=== PATIENT | female | born 1940 | race Caucasian/White ===

== ENCOUNTER 2016-08-04 14:33 | Emergency (ER) | payer SELFPAY ==
[2016-08-04 15:22] LABS: BASOPHILS 0.4 % (0.0-2.0); EOSINOPHILS 4.2 % (0-7); HEMATOCRIT 28.9 % (36.0-48.0); HEMOGLOBIN 8.9 g/dL (12-16); IMMATURE GRANULOCYTES 0.6 % (0-5); LYMPHOCYTES 20.4 % (15-50); MCH 30.4 pg (26.0-34.0); MCHC 30.8 g/dL (31.0-37.0); MCV 98.6 fL (80.0-100.0); MEAN PLATELET VOLUME 9.8 fL (7.4-10.4); MONOCYTES 11.5 % (2-11); NEUTROPHILS 62.9 % (40-80); PLATELET COUNT 215 10x3/uL (130-400); RBC 2.93 10x6/uL (4.00-5.40); RDW 13.7 % (11.5-14.5); WBC 5.2 10x3/uL (4.8-10.8)
[2016-08-04 15:35] LABS: ANION GAP 11.2 mmol/L (8-16); BILIRUBIN - TOTAL 1.09 mg/dL (0.2-1.3); CALCIUM 8.6 mg/dL (8.5-10.1); CARBON DIOXIDE 28.2 mmol/L (21.0-32.0); CREATININE - SERUM 1.2 mg/dL (0.6-1.3); POTASSIUM - SERUM 4.4 mmol/L (3.5-5.1); PROTEIN - SERUM 5.9 g/dL (6.4-8.2)
[2016-08-04 16:39] LABS: APPEARANCE HAZY (CLEAR); BILIRUBIN 1+ (NEGATIVE); COLOR DK YELLOW (YELLOW); GLUCOSE NEGATIVE (NEGATIVE); KETONE NEGATIVE (NEGATIVE); LEUKOCYTE ESTERASE 1+ (NEGATIVE); NITRITE NEGATIVE (NEGATIVE); PROTEIN NEGATIVE (NEGATIVE); SPECIFIC GRAVITY 1.015 (1.005-1.020)
[2016-08-04 16:44] LABS: BACTERIA MANY /hpf (NONE SEEN); EPITHELIAL CELLS 0-5 /hpf (0-5); RED CELLS - URINE 0-5 /hpf (0-5); WHITE CELLS - URINE >50 /hpf (0-5)
== END 2016-08-04 18:15 | disposition home or self-care (01) ==
LOC: D.ER 14:33
PROVIDERS: Emergency Medicine
DX: R19.7 Diarrhea, unspecified (principal); N39.0 Urinary tract infection, site not specified; I10 Essential (primary) hypertension; D64.9 Anemia, unspecified

== ENCOUNTER 2016-08-16 12:25 | Inpatient (IN) | payer MEDICARE ==
[~2016-08-16] VITALS: Ht 167.6 cm; Wt 54.9 kg
[2016-08-16] MEDS ORDERED: NORVASC5 MG PO (12:48)
[2016-08-16] MEDS ORDERED: LOVASTATIN20 MG PO (12:48)
[2016-08-16] MEDS ORDERED: OXYBUTYNIN CHLOR5 MG PO (12:49)
[2016-08-16] MEDS ORDERED: VOLTAREN100 MG PO (12:50)
[2016-08-16] MEDS ORDERED: CELEXA20 MG PO (12:50)
[2016-08-16] MEDS ORDERED: ULTRAM50 MG PO (12:51)
[2016-08-16] MEDS ORDERED: VENTOLIN HFA18 GM INH (12:52)
[2016-08-16] MEDS ORDERED: COMBIGAN OPHT DR5 ML EACH EYE (12:52)
[2016-08-16] MEDS ORDERED: LITE COAT ASPI325 MG PO (12:53)
[2016-08-16 12:58] VITALS: BP 137/66
[2016-08-16 13:26] VITALS: BMI 19.5
[2016-08-16 14:28] LABS: BASOPHILS 0.2 % (0.0-2.0); EOSINOPHILS 0.9 % (0-7); HEMATOCRIT 28.8 % (36.0-48.0); HEMOGLOBIN 8.9 g/dL (12-16); IMMATURE GRANULOCYTES 0.3 % (0-5); LYMPHOCYTES 13.9 % (15-50); MCH 30.5 pg (26.0-34.0); MCHC 30.9 g/dL (31.0-37.0); MCV 98.6 fL (80.0-100.0); MEAN PLATELET VOLUME 9.1 fL (7.4-10.4); MONOCYTES 5.8 % (2-11); NEUTROPHILS 78.9 % (40-80); PLATELET COUNT 192 10x3/uL (130-400); RBC 2.92 10x6/uL (4.00-5.40); RDW 13.1 % (11.5-14.5); WBC 5.9 10x3/uL (4.8-10.8)
[2016-08-16 14:47] LABS: ALBUMIN 3.1 g/dL (3.4-5.0); ANION GAP 13.5 mmol/L (8-16); BILIRUBIN - DIRECT 0.18 mg/dL (0.00-0.30); BILIRUBIN - INDIRECT 0.37 mg/dL (0.00-1.00); BILIRUBIN - TOTAL 0.55 mg/dL (0.2-1.3); CALCIUM 8.5 mg/dL (8.5-10.1); CREATININE - SERUM 0.8 mg/dL (0.6-1.3); POTASSIUM - SERUM 4.5 mmol/L (3.5-5.1); PRE-ALBUMIN 15.5 mg/dL (18.0-35.7); PROTEIN - SERUM 6.3 g/dL (6.4-8.2)
[2016-08-16 16:21] VITALS: BP 133/53
--- NOTE | 2016-08-16 19:00 | NUR ---
PATIENT IN BED WATCHING TV. HOB 40 DEGREES. AAOX4. RR EVEN AND UNLABORED. 0 S/S OF DISTRESS. DENIES PAIN BUT C/O NAUSEA. IV TO RIGHT FA PATENT WITH NO REDNESS OR SWELLING. SCD'S OFF. SRX2. BED LOW. CALL LIGHT WITHIN REACH.
[2016-08-16 20:01] VITALS: BP 141/61
--- NOTE | 2016-08-16 22:30 | NUR ---
ASSESSMENT COMPLETE. NIGHTTIME MED GIVEN. ENCOURAGING PATIENT TO DRINK GOLYTELY, BUT SHE STATED IT IS MAKING HER MORE NAUSEATED. ZOFRAN GIVEN. WILL REASSESS.
--- NOTE | 2016-08-16 23:30 | NUR ---
PATIENT HAVING BM'S FINALLY FROM [employer]. STOOL SAMPLE COLLECTED. ACCORDING TO ORDERS 24 HR URINE WAS SUPPOSED TO BE STARTED DURING DAY SHIFT BUT WAS NOT. NOW UNABLE TO KEEP URINE SEPARATE FROM STOOL. WILL PASS ON IN REPORT.
[2016-08-17] VITALS: BP 133/59
[2016-08-17 04:00] VITALS: BP 142/72
--- NOTE | 2016-08-17 04:30 | NUR ---
PATIENT RESTING WITH EYES CLOSED AND NO DISTRESS NOTED.
[2016-08-17 06:16] LABS: BASOPHILS 0.6 % (0.0-2.0); EOSINOPHILS 3.1 % (0-7); HEMATOCRIT 28.3 % (36.0-48.0); HEMOGLOBIN 8.9 g/dL (12-16); IMMATURE GRANULOCYTES 0.3 % (0-5); LYMPHOCYTES 27.1 % (15-50); MCH 30.6 pg (26.0-34.0); MCHC 31.4 g/dL (31.0-37.0); MCV 97.3 fL (80.0-100.0); MEAN PLATELET VOLUME 9.6 fL (7.4-10.4); MONOCYTES 6.6 % (2-11); NEUTROPHILS 62.3 % (40-80); PLATELET COUNT 224 10x3/uL (130-400); RBC 2.91 10x6/uL (4.00-5.40); RDW 13.1 % (11.5-14.5)
[2016-08-17 06:27] LABS: WBC 3.5 10x3/uL (4.8-10.8)
[2016-08-17 06:33] LABS: INR 1.2 (0.85-1.17); PROTIME 15.1 SECONDS (11.6-15.0)
[2016-08-17 06:52] LABS: ALBUMIN 2.8 g/dL (3.4-5.0); ALKALINE PHOSPHATASE 80 U/L (46-116); ALT (SGPT) 15 U/L (10-68); BILIRUBIN - TOTAL 0.37 mg/dL (0.2-1.3); CALCIUM 8.1 mg/dL (8.5-10.1); CARBON DIOXIDE 28.1 mmol/L (21.0-32.0); CHLORIDE - SERUM 104 mmol/L (98-107); CREATININE - SERUM 0.7 mg/dL (0.6-1.3); GLUCOSE 125 mg/dL (74-106); PROTEIN - SERUM 5.8 g/dL (6.4-8.2); SODIUM 141 mmol/L (136-145); THYROID STIMULATING HORMONE 0.91 uIU/mL (0.36-3.74); eGFR NON AFRICAN AMERICAN 86 mL/min (90-120)
[2016-08-17 06:53] LABS: CALC OSMOLALITY 279 mosm/kg (275-300); POTASSIUM - SERUM 3.4 mmol/L (3.5-5.1); UREA NITROGEN 7 mg/dL (7-18)
--- NOTE | 2016-08-17 07:35 | NUR ---
PATIENT IN BED. AT BEDSIDE. PATIENT HAS A CUP OF GOLYTELY, 1/4 OF THE BOTTLE OF GOLYTLEY LEFT. ASKED PATIENT IF SHE IS STILL HAVING BOWEL MOVEMENTS. PATIENT STATED THE LAST TIME WAS 1 HOUR AGO. PATIENT STATED IT WAS ALMOST CLEAR. TOLD PATIENT NEXT TIME SHE GOES TO LET ME SEE IT. TOLD PATIENT HER PROCEDURE IS SUPPOSED TO BE AROUND 1100 SO SHE DOES NOT NEED TO TAKE ANYTHING ELSE BY MOUTH. REMOVED THE GOLYTLEY AND CUP. PATIENT VERBALIZED UNDERSTANDING. APPLIED SCDS TO BILATERAL LEGS. PATIENT DENIES NEEDS.
[2016-08-17 07:37] LABS: ERYTHROCYTE SEDIMENTATION RATE 32 mm/hr (0-30)
[2016-08-17 07:57] VITALS: BP 144/65
[2016-08-17 13:39] VITALS: Ht 167.6 cm; Wt 54.9 kg
--- NOTE | 2016-08-17 13:39 | NUR ---
Patient Name: VICTOR M BENDER Admission Status: Elective Accout number: [id number] Admission Date: 08-16-2016 : 1940 Admission Diagnosis: Attending: MARGRET Current LOS: 1 Anticipated DC Date: 08-19-2016 Planned Disposition: Home Primary Insurance: [facility] Discharge Planning Comments: CM MET WITH PATIENT AND SON (TRAV), AND BROTHER (MASOUD) REGARDING D/C NEEDS AND PLANS. PATIENT STATED SHE AND HER SON LIVES TOGETHER AND HE WILL DRIVE HER HOME AT DISCHARGE. PATIENT HAS 4 STEPS TO ENTER HOME AND NO STAIRS INSIDE. PATIENT IS INDEPENDENT WITH HER CARE AND SON HELPS WITH MEDS AT TIMES. PATIENTS PCP IS DR. MARTÍNEZ IN [place] AND USES [facility] IN [place]. PATIENT HAS NOT HAD HOME HEALTH BUT STATED SHE MIGHT NEED IT AT DISCHARGE. FADY WAS SIGNED WITH YAMAP IF NEEDED. CM WILL CONTINUE TO FOLLOW PATIENT WITH D/C NEEDS AND PLANS. PCP DR. MARTÍNEZ [facility] IN [place]- [phone] TRAV (SON) [phone] MASOUD (BROTHER) [phone] Splicer Helper: Samantabarbara Florez Is the patient Alert and Oriented? Yes 0 * How many steps to enter\exit or inside your home? 4 W/RAILS 0 * PCP DR. MARTÍNEZ 0 * [facility] IN [place] 0 * Preadmission Environment Home with Family 0 * ADLs Independent 0 * Equipment Walker 0 * List name and contact numbers for known caregivers / representatives who currently or will assist patient after discharge: TRAV (SON) [phone] MASOUD (BROTHER) [phone] 0 * Community resources currently utilized None 0 * Additional services required to return to the preadmission environment? Yes 0 * Can the patient safely return to the preadmission environment? Yes 0 * Has this patient been hospitalized within the prior 30 days at any hospital? No 0 Grand Total: 0
[2016-08-17 15:27] VITALS: BP 122/64
--- NOTE | 2016-08-17 19:00 | NUR ---
PATIENT IN BED WATCHING TV. HOB 40 DEGREES. AAOX4. RR EVEN AND UNLABORED. 0 S/S OF DISTRESS. DENIES PAIN OR NAUSEA AT THIS TIME. IV TO RIGHT FA PATENT WITH NO REDNESS OR SWELLING. SCD'S OFF AT THIS TIME. SRX2. BED LOW. CALL LIGHT WITHIN REACH.
[2016-08-17 20:00] VITALS: BP 124/65
[2016-08-18] VITALS (7 sets, daily range): BP systolic 121–162; BP diastolic 67–84
[2016-08-18 05:42] LABS: BASOPHILS 0.2 % (0-2); EOSINOPHILS 1.3 % (0-7); HEMATOCRIT 27.6 % (36.0-48.0); HEMOGLOBIN 8.7 g/dL (12-16); IMMATURE GRANULOCYTES 0.2 % (0-5); LYMPHOCYTES 20.5 % (15-50); MCH 30.4 pg (26.0-34.0); MCHC 31.5 g/dL (31.0-37.0); MCV 96.5 fL (80.0-100.0); MEAN PLATELET VOLUME 9.2 fL (7.4-10.4); NEUTROPHILS 70.8 % (40-80); PLATELET COUNT 205 10x3/uL (130-400); RBC 2.86 10x6/uL (4.00-5.40); RDW 12.9 % (11.5-14.5)
[2016-08-18 05:46] LABS: WBC 5.6 10x3/uL (4.8-10.8)
[2016-08-18 06:27] LABS: ALBUMIN 2.6 g/dL (3.4-5.0); ALKALINE PHOSPHATASE 72 U/L (46-116); ALT (SGPT) 13 U/L (10-68); CALC OSMOLALITY 270 mosm/kg (275-300); CALCIUM 8.3 mg/dL (8.5-10.1); CHLORIDE - SERUM 102 mmol/L (98-107); CREATININE - SERUM 0.7 mg/dL (0.6-1.3); GLUCOSE 117 mg/dL (74-106); POTASSIUM - SERUM 3.5 mmol/L (3.5-5.1); PROTEIN - SERUM 5.6 g/dL (6.4-8.2); SODIUM 137 mmol/L (136-145); UREA NITROGEN 2 mg/dL (7-18); eGFR NON AFRICAN AMERICAN 86 mL/min (90-120)
--- NOTE | 2016-08-18 07:00 | NUR ---
PT REC'D FROM [facility]. RESTING IN BED WITH AT BEDSIDE. AAOX4. C/O NAUSEA. WILL ADMINISTER ANTIEMETIC ORDERED. REGULAR HEART RATE AND RHYTHM. LUNG SOUNDS CLEAR AND EQUAL BILAT. BOWEL SOUNDS HYPOACTIVE X4 QUADRANTS. PIV TO R FOREARM. FREE OF REDDNESS AND SWELLING. BED LOW, CALL LIGHT IN REACH, DENIES NEEDS. CPOC.
[2016-08-18 08:16] LABS: PH - STOOL 8.5 (7.0-7.5)
--- NOTE | 2016-08-18 10:30 | NUR ---
MORNING MEDS PASSED AT THIS TIME. PRN ZOFRAN ADMINISTERED PER PT COMPLAINTS OF NAUSEA. WILL REASSESS. NO C/O PAIN. BED LOW, CALL LIGHT IN REACH, DENIES NEEDS. CPOC.
--- NOTE | 2016-08-18 14:18 | NUR ---
PT RESTING IN BED WITH FAMILY AT BEDSIDE. PROTONIX BAG CHANGED. BED LOW, CALL LIGHT IN REACH, DENIES NEEDS. CPOC.
--- NOTE | 2016-08-18 17:44 | NUR ---
PATIENT RESTING QUIETLY WITH HER EYES CLOSED. NO S/S OF DISTRESS NOTED. CALL LIGHT IN PATIENT'S REACH. WILL MONITOR.
--- NOTE | 2016-08-18 20:57 | NUR ---
AWAKE AND ALERT AT THIS TIME. REFUSING TO TAKE CARAFATE SHE STATES THAT IS MAKES HER NAUSEOUS. ASKED PT IF SHE WOULD LIKE NAUSEA MEDICATION AND SHE SAID NO THAT IT DOES NOT HELP HER. ASSESSMENT PERFORMED PER FLOWSHEET. IV PATENT. CLEAN [place] HAT APPLIED TO BEDSIDE COMMODE SO THAT A URINE SAMPLE AND CULTURE COULD BE OBTAINED. PT IS AMBULATORY AND SELF POSITIONS FOR COMFORT. SCD'S OFF PER PT. DENIES PAIN OR NEEDS AT THIS TIME. CALL LIGHT IN REACH, WILL CONTINUE WITH PLAN OF CARE.
[2016-08-19 01:28] LABS: APPEARANCE CLEAR (CLEAR); BILIRUBIN NEGATIVE (NEGATIVE); COLOR YELLOW (YELLOW); GLUCOSE 50 mg/dL (NEGATIVE); KETONE NEGATIVE (NEGATIVE); LEUKOCYTE ESTERASE NEGATIVE (NEGATIVE); NITRITE NEGATIVE (NEGATIVE); PROTEIN NEGATIVE (NEGATIVE); RED CELLS - URINE 0-5 /hpf (0-5); UROBILINOGEN NORMAL (NORMAL); WHITE CELLS - URINE NSEEN /hpf (0-5)
[2016-08-19 04:00] VITALS: BP 140/71
[2016-08-19 05:52] LABS: BASOPHILS 0.3 % (0-2); HEMATOCRIT 27.5 % (36.0-48.0); HEMOGLOBIN 8.8 g/dL (12-16); IMMATURE GRANULOCYTES 0.5 % (0-5); LYMPHOCYTES 24.1 % (15-50); MCH 30.4 pg (26.0-34.0); MCV 95.2 fL (80.0-100.0); MEAN PLATELET VOLUME 9.3 fL (7.4-10.4); MONOCYTES 10.4 % (2-11); NEUTROPHILS 63.7 % (40-80); PLATELET COUNT 240 10x3/uL (130-400); RBC 2.89 10x6/uL (4.00-5.40)
[2016-08-19 06:20] LABS: ALBUMIN 2.7 g/dL (3.4-5.0); ALKALINE PHOSPHATASE 75 U/L (46-116); ALT (SGPT) 14 U/L (10-68); BILIRUBIN - TOTAL 0.38 mg/dL (0.2-1.3); CALC OSMOLALITY 269 mosm/kg (275-300); CALCIUM 8.3 mg/dL (8.5-10.1); CARBON DIOXIDE 27.8 mmol/L (21.0-32.0); CHLORIDE - SERUM 100 mmol/L (98-107); CREATININE - SERUM 0.7 mg/dL (0.6-1.3); GLUCOSE 137 mg/dL (74-106); POTASSIUM - SERUM 3.3 mmol/L (3.5-5.1); PROTEIN - SERUM 5.7 g/dL (6.4-8.2); SODIUM 136 mmol/L (136-145); UREA NITROGEN 1 mg/dL (7-18); eGFR NON AFRICAN AMERICAN 86 mL/min (90-120)
--- NOTE | 2016-08-19 09:08 | OP ---
PATIENT NAME: VICTOR M BENDER MEDICAL RECORD: [id number] :40 LOCATION:D.[id number] ADMISSION DATE:08/17/16 SURGEON: STERLING JENSEN MD DATE OF OPERATION: 08/17/2016 SURGEON: Sterling Jensen M.D. PREOPERATIVE DIAGNOSES: 1. Intractable nausea and vomiting. 2. Intractable diarrhea. 3. Abdominal pain. 4. Weight loss. POSTOPERATIVE DIAGNOSES: 1. Intractable nausea and vomiting. 2. Intractable diarrhea. 3. Abdominal pain. 4. Weight loss. PROCEDURES PERFORMED: 1. Esophagogastroduodenoscopy with biopsy. 2. Colonoscopy with biopsy. ANESTHESIA: Total intravenous anesthesia. COMPLICATIONS: None. SPECIMENS: 1. Duodenum. 2. Antrum. 3. Gastric body. 4. Gastroesophageal junction. 5. Ascending colon. 6. Rectum. Case was contaminated. ESTIMATED BLOOD LOSS: Minimal. OPERATIVE COURSE: After consent was obtained, the patient was taken to the endoscopy suite. At this time, a timeout was taken to confirm the correct patient and procedure. Hurricaine [place] was administered. A bite block was placed, total intravenous anesthesia was given. The endoscope was passed through the oropharynx, under direct endoscopic vision, it was passed posterior the epiglottis. It was advanced into the esophagus. The esophagus was markedly tortuous, although no obvious hiatal hernia was noted. Scope was passed through the gastroesophageal junction. The stomach was insufflated. The scope was advanced to the antrum. It was advanced to the pylorus. At this time, the duodenum was inspected and appeared normal in appearance. Multiple biopsies of the duodenum were taken. The scope was withdrawn through the pylorus. There was some mild antritis noted. Multiple biopsies were taken of the antrum. The stomach body was inspected. There were no masses, no lesions, no areas of erosions. There was some mild gastritis noted. Multiple gastric biopsies were then taken. The scope was retroflexed. There was a small hiatal hernia noted. The scope was withdrawn to the GE junction. The Z line was mildly abnormal. OPERATIVE REPORT [id number] VICTOR M BENDER Multiple biopsies were taken along the GE junction and the abnormalities along the Z line. Again on withdrawal of the scope to the esophagus, again a marked tortuosity of the esophagus was noted, although there was no mass, no lesions, no evidence of esophageal diverticular disease. The scope was withdrawn. At this time, the patient was repositioned and the colonoscopy started. The digital rectal exam was performed, no masses, no external hemorrhoids. The scope was inserted into the rectum. The colon was insufflated. The scope was advanced to the ileocecal valve. The ileocecal valve was identified. The appendiceal orifice was identified and photographed. Approximately 10-12 minutes of time was spent upon withdrawal of the scope. The patient had marked pain, diverticular disease, biopsies, random biopsy. No polyps or masses were identified. No areas of bleeding were identified. Biopsies were taken in the ascending colon as well as the rectum. Again, when the endoscope is returned to the distal sigmoid colon and proximal rectum, the scope is retroflexed. There was some mild internal hemorrhoid disease noted. The patient did have a good prep. The patient needs repeat colonoscopy in 5-10 years. At this time, the scope was reinserted into the sigmoid and descending colon. The colon was desufflated and the scope was withdrawn. At this time, the procedure was terminated. The patient tolerated the procedure well. She was transferred to the recovery room in satisfactory condition. TRANSINT:[id number] Voice Confirmation ID: [id number] DOCUMENT ID: [id number] STERLING JENSEN MD at 0908 CC: [id number] DICTATION DATE: 08/17/16 1200 FORM GRADER OPERATOR: 08/17/16 1822 [facility] [place] [id number] [place] [address]
[2016-08-19 09:45] VITALS: BP 141/72
[2016-08-19 13:40] VITALS: BP 143/71
--- NOTE | 2016-08-19 16:00 | NUR ---
PATIENT IS AWAKE, ALERT AND ORIENTED X'S 4. RESPIRATIONS ARE EVEN AND UNLABORED ON ROOM AIR. PATIENT DENIES NEEDS. BED IN LOWEST POSITION, CALL LIGHT IN REACH. BED RAILS UP X'S 2.
[2016-08-19 16:55] VITALS: BP 138/69
--- NOTE | 2016-08-19 19:30 | NUR ---
RECIEVED SHIFT REPORT. PT IS LYING IN BED. ALERT AND ORIENTED AND ABLE TO VERBALIZE NEEDS. IV IS PATENT AND FLUIDS ARE RUNNING PER ORDER. PT IS AMBULATORY BUT WAS INSTRUCTED TO CALL FOR ANY ASSISTANCE NEEDED. PT DENIES ANY PAIN AT THIS TIME. NO NEEDS ARE VERBALIZED AT THIS TIME. WILL CONTINUE TO MONITOR. VISITOR AT BEDSIDE. SIDE RAILS ARE UP X 2. BED IS IN LOWEST POSITION. CALL LIGHT IS WITHIN REACH.
[2016-08-19 20:00] VITALS: BP 127/58
--- NOTE | 2016-08-19 21:09 | NUR ---
SHIFT ASSESSMENT COMPLETED. PT REFUSED SCHEDULED CARAFATE. NO NEEDS ARE VOICED. WILL MONITOR. VISITOR AT BEDSIDE. SIDE RAILS X 2. BED LOW. CALL LIGHT IN REACH.
[2016-08-20] VITALS (12 sets, daily range): BP systolic 115–148; BP diastolic 63–75
[2016-08-20 03:05] LABS: GASTRIN 42 pg/mL (0-115)
[2016-08-20 06:07] LABS: HEMOGLOBIN 8.9 g/dL (12-16); MCH 30.6 pg (26.0-34.0); MCHC 31.8 g/dL (31.0-37.0); MCV 96.2 fL (80.0-100.0); MEAN PLATELET VOLUME 9.2 fL (7.4-10.4); PLATELET COUNT 249 10x3/uL (130-400); RBC 2.91 10x6/uL (4.00-5.40)
[2016-08-20 06:25] LABS: WBC 2.9 10x3/uL (4.8-10.8)
[2016-08-20 06:31] LABS: ALBUMIN 2.8 g/dL (3.4-5.0); ALKALINE PHOSPHATASE 76 U/L (46-116); ALT (SGPT) 14 U/L (10-68); BILIRUBIN - TOTAL 0.38 mg/dL (0.2-1.3); CALC OSMOLALITY 269 mosm/kg (275-300); CALCIUM 8.5 mg/dL (8.5-10.1); CARBON DIOXIDE 29.5 mmol/L (21.0-32.0); CHLORIDE - SERUM 101 mmol/L (98-107); CREATININE - SERUM 0.7 mg/dL (0.6-1.3); GLUCOSE 105 mg/dL (74-106); POTASSIUM - SERUM 3.7 mmol/L (3.5-5.1); PROTEIN - SERUM 5.3 g/dL (6.4-8.2); SODIUM 137 mmol/L (136-145); eGFR NON AFRICAN AMERICAN 86 mL/min (90-120)
[2016-08-20 06:36] LABS: UREA NITROGEN 2 mg/dL (7-18)
[2016-08-20 06:53] LABS: BASOPHILS 1 % (0-2); EOSINOPHILS 1 % (0-7); LYMPHOCYTES 34 % (15-50); MONOCYTES 9 % (2-11); NEUTROPHILS 54 % (40-80); PLATELET ESTIMATE NORMAL
--- NOTE | 2016-08-20 08:23 | NUR ---
PT AOX4 RESP EVEN AND NONLABORED SRX2 CALL LIGHT WITHIN REACH IV TO RIGHT FOREARM PATENT AND INTACT BED AT LOWEST SETTING PT DENIES NEEDS AT THIS TIME WILL CONTINUE TO MONITOR
--- NOTE | 2016-08-20 10:57 | NUR ---
IV ACCESS-20 GAUGE INSERTED IN RIGHT FOREARM FOR ACCESS. LINDA ERVINRN
--- NOTE | 2016-08-20 21:01 | NUR ---
RECEIVED PT VIA BED FROM RR POST LAP ISHA PER DR JENSEN, PT TO ROOM, VS INITIATED, IV IN RIGHT FA/WRIST AREA INFUSING VIA PUMP LR AT 125 ML/HR, PT DROWSY, AROUSES TO SOFT VERBAL STIMUALTION, 4 LAP INC WITH STERI STRIPS CDI WITH NO DRAINAGE NOTED, SCD'S CONNECTED TO PUMP AND WORKING PROPERLY, PT DENIES PAIN, BED IN LOW POSITION, SIDE RAILS X 2, CALL IN REACH
--- NOTE | 2016-08-20 21:30 | NUR ---
PT RESTING WITH EYES CLOSED, RESP QUIET, NO DISTRESS NOTED, LEFT UNDISTURBED AT THIS TIME, FAMILY AT BEDSIDE
--- NOTE | 2016-08-20 22:25 | NUR ---
PT RESTING WITH EYES CLOSED, RESP QUIET, NO DISTRESS NOTED, VS CONTINUE, PT'S SON AT BEDSIDE
--- NOTE | 2016-08-20 23:08 | NUR ---
CALLED CHIQUIS RN, MARBLE CUTTER, REGARDING [facility] ORDER, HE REPORTS TO CALL DR JENSEN TO MAKE SURE PT DOES NOT NEED TRANSFUSION CHASIDY
--- NOTE | 2016-08-20 23:09 | NUR ---
DR CAMILA SHELLEY
--- NOTE | 2016-08-20 23:10 | NUR ---
DR JENSEN CALLS UNIT, VERIFIED [facility] ORDER, NO ORDER TO TRANSFUSE AT THIS TIME
[2016-08-21 00:20] VITALS: BP 124/70
--- NOTE | 2016-08-21 00:20 | NUR ---
VS OBTAINED, D5LR HUNG VIA PUMP INFUSING AT 50 ML/HR PER MD ORDERS, SEE EMAR, PT DENIES NEEDING TO VOID AT THIS TIME, PT INFORMED THAT SHE NEEDS TO VOID NO LATER THAN 2AM, PT VERBALIZES UNDERSTANDING, PT C/O INC PAIN, WILL ADM PAIN MED
--- NOTE | 2016-08-21 00:23 | NUR ---
DR JENSEN PAGED FOR PAIN MED
--- NOTE | 2016-08-21 01:25 | NUR ---
DR JENSEN RE-PAGED
--- NOTE | 2016-08-21 02:00 | NUR ---
PT RESTING WITH EYES CLOSED, AROUSES TO SOFT VERBAL STIMULATION, SCD'S DISCONNECTED, BLUE SOCKS APPLIED, PT UP TO BR WITH ASSISTANCE, PT VOIDED 225 MLS OF CLEAR YELLOW URINE BY SELF WITH NO DIFFICULTY, PT BACK TO BED, SCD'S RECONNECTED, APPLE JUICE SERVED, PT INFORMED THAT I HAVE A CALL INTO DR JENSEN FOR PAIN MED, PT DENIES FURTHER NEEDS, SON ASLEEP IN RECLINER
[2016-08-21 04:10] VITALS: BP 137/71
--- NOTE | 2016-08-21 04:10 | NUR ---
PT AWAKE, VS OBTAINED, I&O'S COLLECTED, PT C/O INC PAIN, INFORMED PT THAT I DO HAVE A CALL INTO THE DOCTOR, PT VERBALIZES UNDERSTANDING, PT DENIES NEED TO VOID AT THIS TIME, DENIES NEEDS, SON AT BEDSIDE
--- NOTE | 2016-08-21 06:17 | NUR ---
PT AWAKE, ADM PROTONIX PO PER MD ORDERS, SEE EMAR, PT RATES INC PAIN 11/05, INFORMED PT THAT I WILL PAGE THE DOCTOR AGAIN, PT VERBALIZES UNDERSTANDING, DENIES FURTHER NEEDS, SON AT BEDSIDE
--- NOTE | 2016-08-21 06:21 | NUR ---
DR JENSEN PAGED AGAIN
--- NOTE | 2016-08-21 06:23 | NUR ---
DR JENSEN CALLS UNIT, REPORT FOR PAIN MED, ORDERS RECEIVED
[2016-08-21 07:00] LABS: BASOPHILS 0.1 % (0-2); EOSINOPHILS 0.4 % (0-7); HEMATOCRIT 26.2 % (36.0-48.0); HEMOGLOBIN 8.3 g/dL (12-16); IMMATURE GRANULOCYTES 0.3 % (0-5); MCH 30.4 pg (26.0-34.0); MCHC 31.7 g/dL (31.0-37.0); MONOCYTES 6.9 % (2-11); NEUTROPHILS 78.3 % (40-80); PLATELET COUNT 248 10x3/uL (130-400); RBC 2.73 10x6/uL (4.00-5.40); RDW 13.2 % (11.5-14.5)
--- NOTE | 2016-08-21 07:00 | NUR ---
SHIFT REPORT TO LOU YOUSIF RN
[2016-08-21 07:01] LABS: WBC 6.8 10x3/uL (4.8-10.8)
[2016-08-21 07:10] VITALS: BP 141/71
[2016-08-21 07:15] LABS: ALBUMIN 2.6 g/dL (3.4-5.0); ALKALINE PHOSPHATASE 75 U/L (46-116); BILIRUBIN - TOTAL 0.59 mg/dL (0.2-1.3); CALCIUM 8.1 mg/dL (8.5-10.1); CARBON DIOXIDE 27.7 mmol/L (21.0-32.0); CHLORIDE - SERUM 100 mmol/L (98-107); CREATININE - SERUM 0.7 mg/dL (0.6-1.3); GLUCOSE 120 mg/dL (74-106); POTASSIUM - SERUM 3.6 mmol/L (3.5-5.1); PROTEIN - SERUM 5.2 g/dL (6.4-8.2); SODIUM 135 mmol/L (136-145); eGFR NON AFRICAN AMERICAN 86 mL/min (90-120)
[2016-08-21 07:16] LABS: CALC OSMOLALITY 267 mosm/kg (275-300); UREA NITROGEN 5 mg/dL (7-18)
[2016-08-21 07:17] LABS: ALT (SGPT) 44 U/L (10-68)
--- NOTE | 2016-08-21 07:30 | NUR ---
PT WAS RECEIVED THIS AM LYING IN BED. SHE OFFERS NO COMPLAINTS. HER PAIN IS A 0. STATES THAT SHE JUST RECEIVED A PAIN PILL. HER SON IS AT BEDSIDE. GEN- AWAKE AND ALERT. LUNGS- CLEAR. HEART- RRR. ABD , SOFT, BS+ 4 SMALL INCISIONS WITH STERI STRIPS NOTED. CLEAN , DRY AND INTACT. EXT- WARM AND DRY, SCD'S NOTED. . IV PATENT R FOREARM. BED IS LOW, SIDE RAILS UP X 2 AND CALL LIGHT IN REACH.
--- NOTE | 2016-08-21 08:24 | OP ---
PATIENT NAME: VICTOR M BENDER MEDICAL RECORD: [id number] :40 LOCATION:[id number] ADMISSION DATE:08/17/16 SURGEON: STERLING JENSEN MD DATE OF OPERATION: 08/20/2016 SURGEON: Sterling Jensen MD PREOPERATIVE DIAGNOSIS: 1. Symptomatic cholelithiasis 2. Intractable nausea and vomiting. 3. Intractable diarrhea. 4. Abdominal pain. 5. Weight loss. 6. Severe protein malnutrition. POSTOPERATIVE DIAGNOSES: 1. Symptomatic cholelithiasis 2. Intractable nausea and vomiting. 3. Intractable diarrhea. 4. Abdominal pain. 5. Weight loss. 6. Severe protein malnutrition. PROCEDURE PERFORMED: Laparoscopic cholecystectomy. ANESTHESIA: General. COMPLICATIONS: None. SPECIMENS: Gallbladder. Case was clean contaminated. ESTIMATED BLOOD LOSS: 60 cc. OPERATIVE COURSE: After consent was obtained, the patient was taken to the operating room and placed in supine position on the operating table. Next, general anesthesia was given via endotracheal intubation after a timeout was performed to confirm the correct patient and procedure. The abdomen was then prepped and draped in typical sterile fashion and was prepped and draped in typical sterile fashion. Local anesthetic was injected just above the umbilicus. A stab incision was made with an 11-blade scalpel. Using a 5-mm bladeless optical trocar, the abdomen was entered under direct laparoscopic vision. Adequate pneumoperitoneum was achieved. The patient was placed in the steep reverse Trendelenburg position. All remaining trocars were then placed after the administration of local anesthetic, two 5-mm trocars in the right upper quadrant and 11-mm trocar in the subxiphoid position. The fundus of the gallbladder was grasped and retracted cephalad. The infundibulum was grasped and retracted laterally. The peritoneum was incised using electrocautery. Blunt dissection was then performed until the critical view was obtained, cystic duct lateral, cystic artery medially. The cystic artery was able to be gently swept off the gallbladder, 3 clips were placed in the proximal cystic duct, 1 clip distal. The cystic duct was then transected with laparoscopic Metzenbaum scissors. The remaining portion of the gallbladder was then dissected off the liver bed using electrocautery. Once complete, it was grasped with the OPERATIVE REPORT [id number] VICTOR M BENDER tenaculum and removed through the 11-mm trocar and sent for permanent pathology. At this time, the operative field was copiously irrigated and suctioned. The cystic duct was markedly dilated. The [address] in the cystic duct, but none of the clips were completely across the full distance of the cystic duct. At this time, it was decided to place an Endoloop just prior to the proximal clip. The abdomen was again copiously irrigated and suctioned. There was significant recurrent oozing on the liver bed that cannot be controlled with cautery. At this time, a Surgicel was placed in the liver bed and held pressure for approximately 10 minutes. The Surgicel was removed. There was no active bleeding. The Surgicel was repacked in the liver bed and left in place. The abdomen was irrigated and suctioned. No evidence of bowel injury. No evidence of bleeding, no evidence of bile leak. At this time, all remaining instruments were removed. The abdomen was desufflated. Trocars removed. Skin was closed with 4-0 Monocryl, Mastisol and Steri-Strips. At the end of the case, all needle and instrument counts were correct. No complications occurred. The patient was extubated and transferred to the PACU in stable condition. TRANSINT:[id number] Voice Confirmation ID: [id number] DOCUMENT ID: [id number] STERLING JENSEN MD at 0824 CC: [id number] DICTATION DATE: 08/20/162024 OYSTER FLOATER: 08/21/16 0303 [facility] IN [place] [address] [place] [address]
--- NOTE | 2016-08-21 08:30 | NUR ---
DR JENSEN IS HERE TO SEE PT. SHE OFFERS NO COMPLAINTS AND HE IS GOING TO DISCHARGE HER AFTER LUNCH IF SHE TOLERATES A REGULAR LUNCH. HE WANTS HER TO FU IN 2 MONTHS.
--- NOTE | 2016-08-21 09:30 | NUR ---
PT OFFERS NO COMPLAINTS. PT IS SLEEPING OFF AND ON. BED IS LOW, SIDE RAILS UP X 2 AND CALL LIGHT IN REACH.
--- NOTE | 2016-08-21 11:12 | NUR ---
PT IS SLEEPING. SIDE RAILS UP X 2, BED IS LOW AND CALL LIGHT IN REACH.
--- NOTE | 2016-08-21 11:17 | NUR ---
PTS SON CAME TO DESK AND STATES THAT HIS MOM DOES NOT MAKE MUCH MONEY AND KENRICK KNOW HER BILL WILL BE ALOT. HE WAS WANTING TO KNOW WHO HE COULD TALK TO. WE CALLED BUSINESS OFFICE AND THEY WILL COME TALK TO HER.
--- NOTE | 2016-08-21 12:08 | NUR ---
Radiology here to oz patient for CT.
--- NOTE | 2016-08-21 13:06 | NUR ---
PTS DISCHARGHE INSTRUCTIONS WERE GIVENA AND PT WAS DISCHARGED. HANDOUTS GIVEN AND FU APPTS WITH DR JENSEN AND DR QUARLES. CARDS GIVEN. PRESCRIPTION FOR NORCO 5/325 GIVEN.
--- NOTE | 2016-08-21 13:11 | NUR ---
PT WAS TAKEN TO VEHICLE BY WHEELCHAIR.
[2016-08-22 03:10] LABS: HPYLORI STOOL ANTIGEN Negative (Negative); OVA + PARASITE EXAM Final report (())
[2016-08-22 09:17] LABS: HEPATITIS C ANTIBODY <0.1 (0.0-0.9)
[2016-08-22 19:11] LABS: 5HIAA - 24HR 3.1 mg/24 hr (0.0-14.9)
[2016-08-23 09:17] LABS: CALCITONIN <2.0 pg/mL (0.0-5.0)
== END 2016-08-21 13:22 | disposition home or self-care (01) | DRG 417 ==
LOC: D.MS 12:25 → OBSVTIME 12:25 → D.MS 08-17 15:18 → D.WS 08-20 20:47
PROVIDERS: Family Medicine; Surgery; ADMIT Surgery
DX: K80.10 Calculus of gallbladder with chronic cholecystitis without obstruction (principal); E43 Unspecified severe protein-calorie malnutrition; R11.2 Nausea with vomiting, unspecified; R19.7 Diarrhea, unspecified; I10 Essential (primary) hypertension; E78.5 Hyperlipidemia, unspecified; F41.9 Anxiety disorder, unspecified; N39.46 Mixed incontinence; J44.9 Chronic obstructive pulmonary disease, unspecified; D51.0 Vitamin B12 deficiency anemia due to intrinsic factor deficiency; K29.70 Gastritis, unspecified, without bleeding; K21.9 Gastro-esophageal reflux disease without esophagitis; H40.9 Unspecified glaucoma

== ENCOUNTER → 2019-01-20 08:00 | Outpatient (CLI) | payer MEDICARE ==
[2016-08-17 13:39] VITALS: BMI 19.5
[~2019-01-20 08:00] MED LIST: CELEXA20 MG PO; COMBIGAN OPHT DR5 ML EACH EYE; LITE COAT ASPI325 MG PO; LOVASTATIN20 MG PO; NORVASC5 MG PO; OXYBUTYNIN CHLOR5 MG PO; ULTRAM50 MG PO; VENTOLIN HFA18 GM INH; VOLTAREN100 MG PO
== END | disposition home or self-care (01) ==
LOC: D.MAMMO 08:00
PROVIDERS: ATTEND Family Medicine
DX: Z12.31 Encounter for screening mammogram for malignant neoplasm of breast (principal)